=== PATIENT | male | born 1975 | race Caucasian/White ===

== ENCOUNTER 2021-04-20 13:00 | Outpatient (RCR) | payer OTHER | END 2021-05-04 | disposition home or self-care (01) | LOC: PT 13:00 | DX: Z98.890 Other specified postprocedural states (principal) ==

== ENCOUNTER 2021-05-09 09:00 | Outpatient (RCR) | payer OTHER | END 2021-06-04 | disposition home or self-care (01) | LOC: PT | DX: Z98.890 Other specified postprocedural states (principal) ==